=== PATIENT | male | born 1940 | race Caucasian/White ===

== ENCOUNTER 2021-01-25 15:15 | Emergency (ER) | payer OTHER, MEDICARE ==
[~2021-01-25] VITALS: Ht 190.5 cm; Wt 127.0 kg
[2021-01-25 15:15] VITALS: BP_SYST 165
[~2021-01-25 15:15] MED LIST: DILT240C54 PO; DOXA2TAB PO; LIP10 PO
--- NOTE | 2021-01-25 15:15 | NUR ---
Patient came from home for evaluation of laceration to left thumb. Patient states he was sharpening a knife and accidently cut himself. He denies pain at this time.
--- NOTE | 2021-01-25 15:15 | NUR ---
Patient to ER bed 2 to gown for evaluation. Side rails up.
--- NOTE | 2021-01-25 15:40 | NUR ---
ER Dr. Mchugh at bedside examining patient.
[2021-01-25] MEDS ORDERED: DIPH-TET-PERTUS Vaccine 0.5 ML VIAL (ADACEL) I.M. ONE (15:45)
[2021-01-25] MEDS ORDERED: BACITRACIN 1 GM OINT TP ONE (16:00)
[2021-01-25 16:05] VITALS: BP_SYST 147
--- NOTE | 2021-01-25 16:05 | NUR ---
Patient given written and verbal discharge instructions and verbalizes understanding. ER MD discussed with patient the results and treatment provided. Patient in stable condition. ID arm band removed. Patient educated on pain management and to follow up with PMD. Pain Scale 0/10. Opportunity for questions provided and answered. Medication side effect fact sheet provided.
== END 2021-01-25 16:05 | disposition home or self-care (01) ==
LOC: SED 15:15
DX: S61.012A Laceration without foreign body of left thumb without damage to nail, initial encounter (principal); I10 Essential (primary) hypertension; E78.5 Hyperlipidemia, unspecified; Z79.899 Other long term (current) drug therapy; W26.0XXA Contact with knife, initial encounter; Y93.89 Activity, other specified; Y92.89 Other specified places as the place of occurrence of the external cause; Y99.8 Other external cause status
CPT/HCPCS: 90715; 99283